=== PATIENT | female | born 2000 | race African-American/Black ===

== ENCOUNTER 2024-08-30 11:31 | Emergency (ER) | payer OTHER ==
[~2024-08-30] VITALS: Ht 162.6 cm; Wt 90.9 kg
[2024-08-30 11:42] VITALS: BP 100/65; PULSE 80; RESP 18; TEMP 98.3; O2SAT 99
[2024-08-30 12:29] LABS: BASOPHILS % (AUTO) 0.7 % (0.0-2.0); EOSINOPHILS % (AUTO) 1.3 % (1.0-6.0); HEMATOCRIT 42.1 % (36-46); HEMOGLOBIN 13.9 g/dL (12.0-16.0); LYMPHOCYTES # (AUTO) 1.4 K/uL (1.0-4.8); LYMPHOCYTES % (AUTO) 19.3 % (22.0-44.0); MEAN CORPUSCULAR VOLUME 97 fL (80-100); MONOCYTES # (AUTO) 0.5 K/uL (0.1-1.0); MONOCYTES % (AUTO) 6.8 % (2.0-9.0); NEUTROPHILS # (AUTO) 5.1 K/uL (1.8-7.7); NEUTROPHILS % (AUTO) 71.9 % (40.0-70.0); PLATELET COUNT (AUTO) 319 K/uL (150-450); RED BLOOD CELL COUNT(AUTO) 4.34 MIL/uL (4.00-5.20); RED CELL DISTRIBUTION WIDTH 13.8 % (11.5-14.5); WHITE BLOOD COUNT (AUTO) 7.1 K/uL (4.5-11.0)
[2024-08-30 12:36] LABS: ANION GAP 10 mmol/L (8-16); CALCIUM, TOTAL 8.7 mg/dL (8.8-10.5); CARBON DIOXIDE 25 mmol/L (22-29); CHLORIDE 100 mmol/L (98-107); CREATININE 0.63 mg/dL (0.60-1.30); GLOMERULAR FILTR. RATE CALC > 60 mL/min (>60); GLUCOSE,RANDOM 94 mg/dL (70-110); POTASSIUM 3.8 mmol/L (3.5-5.1); SODIUM SERUM 135 mmol/L (136-145); UREA NITROGEN, BLOOD 12 mg/dL (7-18)
[2024-08-30 12:43] LABS: ALANINE AMINOTRANSFERASE 16 U/L (12-78); ALBUMIN 3.4 g/dL (3.4-5.0); ALKALINE PHOSPHATASE 109 U/L (46-116); ASPARTATE AMINOTRANSFERASE 17 U/L (15-37); BILIRUBIN,TOTAL 0.3 mg/dL (0.1-1.0); TOTAL PROTEIN, SERUM 7.1 g/dL (6.4-8.2)
[2024-08-30 12:44] LABS: TROPONIN I-HIGH SENSITIVITY Less Than 4 ng/L (<51)
[2024-08-30 12:50] LABS: ALCOHOL, BLOOD (SERUM) < 3 mg/dL (0-10)
[2024-08-30] MEDS ORDERED: MELA3TAB89 PO (13:36)
== END 2024-08-30 13:48 | disposition home or self-care (01) ==
LOC: EMS 11:31
DX: R06.02 Shortness of breath (principal); F41.0 Panic disorder [episodic paroxysmal anxiety]
CPT/HCPCS: 99284; 80053; 84484; 84703; 85025; 85379; 36415; 93005; G0480

== ENCOUNTER 2025-08-25 21:18 | Emergency (ER) | payer MEDICAID, OTHER ==
[~2025-08-25] VITALS: Ht 165.1 cm; Wt 44.4 kg
[~2025-08-25 21:18] MED LIST: MELA3TAB89 PO
[2025-08-25 22:21] LABS: APPEARANCE,URINE CLEAR (CLEAR); GLUCOSE, URINE (UA) NEGATIVE (NEGATIVE); LEUKOCYTE ESTERASE ,URINE NEGATIVE (NEGATIVE); NITRATE,URINE NEGATIVE (NEGATIVE); OCCULT BLOOD,URINE TRACE (NEGATIVE); SPECIFIC GRAVITIY, URINE 1.014 (1.003-1.030)
[2025-08-25 22:33] LABS: PLATELET COUNT (AUTO) 319 K/uL (150-450); RED BLOOD CELL COUNT(AUTO) 3.95 MIL/uL (4.00-5.20); RED CELL DISTRIBUTION WIDTH 13.5 % (11.5-14.5); WHITE BLOOD COUNT (AUTO) 8.8 K/uL (4.5-11.0)
[2025-08-25 22:42] LABS: CALCIUM, TOTAL 8.9 mg/dL (8.8-10.5); CREATININE 0.74 mg/dL (0.60-1.30); GLOMERULAR FILTR. RATE CALC > 60 mL/min (>60); GLUCOSE,RANDOM 95 mg/dL (70-110); SODIUM SERUM 138 mmol/L (136-145); UREA NITROGEN, BLOOD 9 mg/dL (7-18)
[2025-08-25 22:47] LABS: ASPARTATE AMINOTRANSFERASE 52.0 U/L (15-37); TOTAL PROTEIN, SERUM 7.3 g/dL (6.4-8.2)
[2025-08-25 23:13] LABS: SQUAMOUS EPITHELIAL CELL,UR Few /LPF (None Seen)
[2025-08-26 00:19] VITALS: BP 141/98; PULSE 70; RESP 16; TEMP 98.4; O2SAT 100
[2025-08-26] MEDS ORDERED: KETOROLAC TROMETHAMINE 30 MG/ML VIAL IM ONE (00:45)
[2025-08-26] MEDS: LIDOCAINE 5% TRANSDERMAL PATCH TD ONE (01:04)
[2025-08-26] MEDS ORDERED: LIDO-57 TP (01:05)
[2025-08-26] MEDS: KETOROLAC TROMETHAMINE 30 MG/ML VIAL IVP ONE (01:08)
== END 2025-08-26 02:37 | disposition home or self-care (01) ==
LOC: EMS 21:18
DX: S39.012A Strain of muscle, fascia and tendon of lower back, initial encounter (principal); X58.XXXA Exposure to other specified factors, initial encounter; Y93.89 Activity, other specified; Y92.89 Other specified places as the place of occurrence of the external cause; Y99.8 Other external cause status
CPT/HCPCS: 99283; 80048; 80076; 81001; 83690; 84703; 85025; 36415; 96374; J1885; 81003